=== PATIENT | female | born 1965 | race Hispanic/Latino ===

== ENCOUNTER 2016-09-23 17:36 | Emergency (ER) | payer OTHER, BC | END 2016-09-23 22:24 | disposition home or self-care (01) | LOC: ER 17:36 | DX: S06.0X0A Concussion without loss of consciousness, initial encounter (principal); S16.1XXA Strain of muscle, fascia and tendon at neck level, initial encounter; W01.0XXA Fall on same level from slipping, tripping and stumbling without subsequent striking against object, initial encounter; Y92.89 Other specified places as the place of occurrence of the external cause | CPT/HCPCS: 70450; 72125 ==